=== PATIENT | female | born 1985 | race Caucasian/White ===

== ENCOUNTER 2018-06-01 08:40 | Emergency (ER) | payer OTHER ==
--- NOTE | 2018-06-01 09:21 | EDPHYS ---
Physician Documentation [facility] Name: Magdalena Fernandez Age: 32 yrs Sex: Female : 1985 Arrival Date: 06/01/2018 Time: 08:43 Bed 18 Private MD: out of town, doctor ED Physician Arturo Carrasco HPI: 06/01 08:55 This 32 yrs old Female presents to ER via Ambulatory with complaints of Neck kav Swelling, Cough. 09:12 The patient presents with sore throat. The patient describes throat pain as dry, raw. kav Onset: The symptoms/episode began/occurred acutely, last week. Severity of symptoms: At their worst the symptoms were mild, just prior to arrival, in the emergency department the symptoms are unchanged. Modifying factors: The symptoms are alleviated by nothing, the symptoms are aggravated by Patient's oral intake status: good Denies contact with similarly ill indivduals. Associated signs and symptoms: Pertinent positives: earache, bilateral maxillary sinus pressure. The patient has not experienced similar symptoms in the past. The patient has been recently seen by a physician: the patient's primary care provider. Reports being seen by PCP approximately two weeks ago for a positive ALEXANDER lab test and developed acute anxiety related to this test finding and was given prescription medication for anxiety: lexapro 5 mg po q daily and ativan 0.25 mg po q daily. she reports that she developed right ear pain and a sore throat approximately one week ago and went to her PCP this past Tuesday for these new c/o's and was told that they were anxiety related. patient also reports neck swelling and reports googling her symptoms and now has a fear of throat cancer. 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 - Social history:: Smoking status: Patient/guardian denies using tobacco. - Ebola Screening: : No symptoms or risks identified at this time. - Family history:: not pertinent. - Hospitalizations: : No recent hospitalization is reported. - History obtained from: . ROS: 09:16 Constitutional: Negative for fever, chills, and weight loss, Eyes: Negative for injury, kav pain, redness, and discharge, Neck: Negative for injury, pain, and swelling, Cardiovascular: Negative for chest pain, palpitations, and edema, Respiratory: Negative for shortness of breath, cough, wheezing, and pleuritic chest pain, Abdomen/GI: Negative for abdominal pain, nausea, vomiting, diarrhea, and constipation, Back: Negative for injury and pain, : Negative for injury, bleeding, discharge, and swelling, MS/Extremity: Negative for injury and deformity, Skin: Negative for injury, rash, and discoloration, Neuro: Negative for headache, weakness, numbness, tingling, and seizure, Psych: Negative for depression, anxiety, suicide ideation, homicidal ideation, and hallucinations, Allergy/Immunology: Negative for hives, rash, and allergies, Endocrine: Negative for neck swelling, polydipsia, polyuria, polyphagia, and marked weight changes, Hematologic/Lymphatic: Negative for swollen nodes, abnormal bleeding, and unusual bruising. 09:16 ENT: Positive for ear pain, sinus congestion, sinus pain, Negative for nasal discharge, difficulty swallowing, difficulty handling secretions. Exam: 09:16 Constitutional: This is a well developed, well nourished patient who is awake, alert, kav and in no acute distress. Head/Face: Normocephalic, atraumatic. Eyes: Pupils equal round and reactive to light, extra-ocular motions intact. Lids and lashes normal. Conjunctiva and sclera are non-icteric and not injected. Cornea within normal limits. Periorbital areas with no swelling, redness, or edema. Chest/axilla: Normal chest wall appearance and motion. Nontender with no deformity. No lesions are appreciated. Cardiovascular: Regular rate and rhythm with a normal S1 and S2. No gallops, murmurs, or rubs. Normal PMI, no JVD. No pulse deficits. Respiratory: Lungs have equal breath sounds bilaterally, clear to auscultation and percussion. No rales, rhonchi or wheezes noted. No increased work of breathing, no retractions or nasal flaring. Abdomen/GI: Soft, non-tender, with normal bowel sounds. No distension or tympany. No guarding or rebound. No evidence of tenderness throughout. Back: No spinal tenderness. No costovertebral tenderness. Full range of motion. Skin: Warm, dry with normal turgor. Normal color with no rashes, no lesions, and no evidence of cellulitis. MS/ Extremity: Pulses equal, no cyanosis. Neurovascular intact. Full, normal range of motion. Neuro: Awake and alert, GCS 15, oriented to person, place, time, and situation. Cranial nerves II-XII grossly intact. Motor strength 5/5 in all extremities. Sensory grossly intact. Cerebellar exam normal. Normal gait. Psych: Awake, alert, with orientation to person, place and time. Behavior, mood, and affect are within normal limits. 09:16 ENT: External ear(s): are unremarkable, no acute changes, Ear canal(s): are normal, no acute changes, TM's: fluid levels, on the right, Examination of the other ear shows no obvious abnormality, Posterior pharynx: erythema, that is mild, Breath odor: 09:16 Neck: Lymph nodes: lymphadenopathy is appreciated, submandibular nodes. Vital Signs: 08:51 BP 142 / 83; Pulse 83; Resp 18 S; Temp 98.3(O); Pulse Ox 100% on R/A; Weight 68.04 kg aa5 (R); Height 5 ft. 2 in. (157.48 cm) (R); Pain 6/10; 08:51 Body Mass Index 27.44 (68.04 kg, 157.48 cm) aa5 MDM: 08:54 Medical screening is not applicable. ka 09:16 Data reviewed: vital signs, nurses notes. kav Administered Medications: No medications were administered Disposition: 18:45 Co-signature as Attending Physician, Arturo Carrasco MD. rn Disposition: 06/01/18 09:20 Discharged to Home. Impression: Generalized anxiety disorder, Acute maxillary sinusitis, unspecified. - Condition is Stable. - Discharge Instructions: Panic Attacks, Sinusitis, Adult, [id number], Generalized Anxiety Disorder. - Prescriptions for Zithromax Z- Keshawn 250 mg Oral Tablet - take 1 tablet by ORAL route as directed for 5 days Day 1 - take two (2) tablets one time. Day 2, 3, 4 , 5 take one (1) tablet once daily.; 6 tablet. Medrol (Keshawn) 4 mg Oral Tablets, Dose Pack - take 1 tablet by ORAL route as directed - follow package instructions; 1 packet. - Medication Reconciliation Form, Thank You Letter, Antibiotic Education form. - Follow up: Private Physician; When: 5 - 6 days; Reason: If symptoms return, Recheck today's complaints, Continuance of care, Re-evaluation by your physician. - Problem is new. - Symptoms have improved. - Notes: continue current medication regimen for dx: anxiety prescribed by your pcp Signatures: Zandra Adams RN RN sv Swapna Hawley, [employer]KER [employer] Arturo Payan MD MD rn Calderon, Audri, RN RN aa5 Corrections: (The following items were deleted from the chart) 09:32 09:20 06/01/2018 09:20 Discharged to Home. Impression: Generalized anxiety disorder; sv Acute maxillary sinusitis, unspecified. Condition is Stable. Forms are Medication Reconciliation Form, Thank You Letter, Antibiotic Education, Prescription Opioid Use. Follow up: Private Physician; When: 5 - 6 days; Reason: If symptoms return, Recheck today's complaints, Continuance of care, Re-evaluation by your physician. Problem is new. Symptoms have improved. kasamanta
--- NOTE | 2018-06-01 09:21 | ER ---
Nurse's Notes [facility] Name: Magdalena Fernandez Age: 32 yrs Sex: Female : 1985 Arrival Date: 06/01/2018 Time: 08:43 Bed 18 Private MD: out of town, doctor Diagnosis: Generalized anxiety disorder;Acute maxillary sinusitis, unspecified Presentation: 06/01 08:48 Presenting complaint: Patient states: "My neck is swelling and I have a cough, when I aa5 take a deep breath I can feel it in my chest". Pt states "this has been ongoing for a few weeks now". Pt states "I finished doxycycline". Transition of care: patient was not received from another setting of care. Onset of symptoms was 2017. 08:48 Method Of Arrival: Ambulatory aa5 08:48 Acuity: ROSETTE 3 aa5 08:50 Risk Assessment: Do you want to hurt yourself or someone else? Patient reports no aa5 desire to harm self or others. Initial Sepsis Screen: Does the patient meet any 2 criteria? No. Patient's initial sepsis screen is negative. Does the patient have a suspected source of infection? No. Patient's initial sepsis screen is negative. Care prior to arrival: None. 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 - Social history:: Smoking status: Patient/guardian denies using tobacco. - Ebola Screening: : No symptoms or risks identified at this time. - Family history:: not pertinent. - Hospitalizations: : No recent hospitalization is reported. - History obtained from: . Screenin:54 Abuse screen: Denies threats or abuse. Denies injuries from another. Nutritional sv screening: No deficits noted. Tuberculosis screening: No symptoms or risk factors identified. Fall Risk None identified. Assessment: 09:05 General: Appears. sv Vital Signs: 08:51 BP 142 / 83; Pulse 83; Resp 18 S; Temp 98.3(O); Pulse Ox 100% on R/A; Weight 68.04 kg aa5 (R); Height 5 ft. 2 in. (157.48 cm) (R); Pain 6/10; 08:51 Body Mass Index 27.44 (68.04 kg, 157.48 cm) aa5 ED Course: 08:43 Patient arrived in ED. mr 08:43 out of town, doctor is Private Physician. mr 08:45 Arm band placed on. aa5 08:50 Triage completed. aa5 08:53 Zandra Adams, ANJELICA is Primary Nurse. sv 08:53 Swapna Hawley FNP [facility]. kav 08:54 Arturo Carrasco MD is Attending Physician. kav 08:54 Patient has correct armband on for positive identification. Bed in low position. Door sv closed. Head of bed elevated. 08:55 Awaiting ED provider evaluation. sv Administered Medications: No medications were administered Outcome: 09:20 Discharge ordered by . kav 09:32 Patient left the ED. sv Signatures: Zandra Adams, RN RN Swapna Hawley FNP FNP [facility] Dior ForteEllen, RN RN [facility]
== END 2018-06-01 09:32 | disposition home or self-care (01) ==
LOC: ER 08:40
DX: J01.00 Acute maxillary sinusitis, unspecified (principal); F41.1 Generalized anxiety disorder
CPT/HCPCS: 99281